=== PATIENT | male | born 1955 | race African-American/Black ===

== ENCOUNTER 2022-05-21 12:23 | Emergency (ER) | payer OTHER ==
[2022-05-21 12:25] VITALS: BP 171/99
[2022-05-21 13:03] LABS: BASOPHILS % (AUTO) 0.5 % (0.0-5.0); EOSINOPHILS % (AUTO) 1.2 % (0.0-8.0); HEMATOCRIT 37.8 % (42-54); MEAN CORPUSCULAR HEMOGLOBIN 28.5 pg (27.0-33.0); MEAN CORPUSCULAR HGB CONC 32.5 g/dL (32.0-36.0); MEAN CORPUSCULAR VOLUME 87.7 fL (79-99); MONOCYTES % (AUTO) 4.4 % (3.0-13.0); NEUTROPHILS % (AUTO) 85.5 % (40.0-77.0); PLATELET COUNT (AUTO) 132 K/uL (130-400); RED BLOOD CELL COUNT(AUTO) 4.31 MIL/uL (4.50-6.20); RED CELL DISTRIBUTION WIDTH 13.8 % (11.0-15.5); WHITE BLOOD COUNT (AUTO) 8.2 K/uL (4.8-10.8)
[2022-05-21 13:15] LABS: CREATININE 1.3 mg/dL (0.5-1.5); POTASSIUM 3.8 mmol/L (3.5-5.1)
[2022-05-21 13:27] LABS: ALBUMIN 3.5 g/dL (3.5-5.0); TOTAL PROTEIN, SERUM 7.2 g/dL (6.0-8.3)
[2022-05-21] MEDS ORDERED: IPRATROPIUM/ALBUTEROL SULFATE 3 ML SOLUTION IH STA (13:27)
[2022-05-21 13:59] LABS: B-TYPE NATRIURETIC PEPTIDE 7 pg/mL (0-100)
[2022-05-21] MEDS ORDERED: PRED5TAB PO (15:17)
[2022-05-21] MEDS ORDERED: AZIT500T2 PO (15:17)
[2022-05-21] MEDS ORDERED: SOLU-MEDROL 125MG VIAL IVP STA (15:21)
[2022-05-21] MEDS ORDERED: ALBUTEROL 0.083% 2.5 MG/3 ML INH IH STA (15:22)
== END 2022-05-21 15:28 | disposition home or self-care (01) ==
LOC: EDH 12:23
DX: J40 Bronchitis, not specified as acute or chronic (principal); E11.9 Type 2 diabetes mellitus without complications; I10 Essential (primary) hypertension; J44.9 Chronic obstructive pulmonary disease, unspecified
CPT/HCPCS: 36415; 71045; 80053; 83880; 84484; 85025; 93005; 94640